=== PATIENT | male | born 1985 | race Caucasian/White ===

== ENCOUNTER 2021-02-24 11:39 | Emergency (ER) | payer OTHER ==
[~2021-02-24] VITALS: Ht 185.4 cm; Wt 120.2 kg
[2021-02-24] MEDS ORDERED: AMLODIPINE BESYL5 MG PO (12:16)
== END 2021-02-24 12:26 | disposition home or self-care (01) ==
LOC: ER 11:45
DX: I16.0 Hypertensive urgency (principal); R42 Dizziness and giddiness
CPT/HCPCS: 99283

== ENCOUNTER 2021-02-26 10:53 | Emergency (ER) | payer OTHER ==
[~2021-02-26] VITALS: Ht 185.4 cm; Wt 120.2 kg
[~2021-02-26 10:53] MED LIST: AMLODIPINE BESYL5 MG PO
[2021-02-26] MEDS ORDERED: SODIUM CHLORIDE 0.9% 1000ML 1,000 ML IV STA (11:08)
[2021-02-26] MEDS ORDERED: MECLIZINE HCL 12.5 MG TAB PO ONE (11:15)
[2021-02-26 11:28] LABS: BASOPHILS % 0.2 % (0.0-1.0); EOSINOPHILS # (AUTO) 0.1 (0.0-0.4); HEMOGLOBIN 15.7 g/dL (14.0-18.0); LYMPHOCYTES # (AUTO) 2.4 (1.0-3.2); LYMPHOCYTES % 28.7 % (18.0-39.1); MEAN CORPUSCULAR HEMOGLOBIN 28.8 pg (28-32); MEAN CORPUSCULAR HGB CONC 34.1 g/dL (31-35); MEAN CORPUSCULAR VOLUME 84.2 fL (81-99); MONOCYTES # (AUTO) 0.4 (0.2-0.8); MONOCYTES % 5.1 % (4.4-11.3); NEUTROPHILS # (AUTO) 5.4 (2.1-6.9); NEUTROPHILS % 64.8 % (38.7-80.0); PLATELET COUNT 223 x10e3/uL (140-360); RED BLOOD COUNT 5.46 x10e6/uL (4.3-5.7); RED CELL DISTRIBUTION WIDTH 12.4 % (11.7-14.4)
[2021-02-26 11:35] LABS: INR 0.98; PARTIAL THROMBOPLASTIN TIME 27.9 seconds (23.8-35.5); PROTHROMBIN TIME 13.8 seconds (11.9-14.5)
[2021-02-26 11:46] LABS: ALBUMIN 4.4 g/dL (3.5-5.0); ALBUMIN/GLOBULIN RATIO 1.2 (0.8-2.0); ANION GAP 14.9 mmol/L (8-16); CALCIUM 9.7 mg/dL (8.4-10.2); CREATININE, SERUM 0.94 mg/dL (0.72-1.25); POTASSIUM 3.9 mmol/L (3.5-5.1)
[2021-02-26 12:05] LABS: CREATINE KINASE MB 0.4 ng/mL (0-5.0); THYROID STIMULATING HORMONE 1.187 uIU/mL (0.350-4.940)
[2021-02-26 13:15] VITALS: BP 147/82
== END 2021-02-26 13:17 | disposition home or self-care (01) ==
LOC: ER 11:02
DX: H81.392 Other peripheral vertigo, left ear (principal); I10 Essential (primary) hypertension
CPT/HCPCS: 36415; 70450; 80053; 82550; 82553; 83735; 84443; 84484; 85025; 85610; 85730; 93005; 99284; J7030; J8597